=== PATIENT | female | born 2000 | race Two or more races ===

== ENCOUNTER 2024-07-10 08:11 | Inpatient (IN) | payer MEDICAID, OTHER ==
[~2024-07-10] VITALS: Ht 167.6 cm; Wt 98.3 kg
[2024-07-10 08:39] LABS: Urine Bacteria None Seen /hpf (None Seen)
[2024-07-10 08:49] LABS: Urine Blood 1+ /uL (Negative); Urine Clarity Clear (Clear); Urine Color Yellow (Yellow); Urine Mucus FEW (None Seen); Urine Protein, UAD 1+ (Negative); Urine Squamous Epithelial Cell FEW /hpf (<5); Urine Urobilinogen Normal (Negative); Urine WBC 2 /HPF (0-5); Urine pH 5.5 (5.0-9.0)
--- NOTE | 2024-07-10 09:32 | ED.PDOC ---
History of Present Illness HPI Comments 24F presents to the ER w/ no prior Hx associated to the c/c of urinary pain. Pt reports on having LLQ/Left sided flank pain for 2 days associated w/ pain during urination and N/V/D. Pt notes the /D being w/ 30 min intervals. Denies chills, fever, SOB, CP or no other associated symptom's, modifiers, recent injuries or sick contact at this time. Chief Complaint: Urinary Time Seen by MD: 09:00 Primary Care Provider: SERGEI Reviewed Notes: Nurses Notes, Medications, Allergies Allergies: Coded Allergies: NO KNOWN ALLERGIES (Unverified , 07/10/24) Information Source: Patient Mode of Arrival: Ambulatory Severity: Moderate Timing: Days Duration: Since onset, Days Prehospital treatment: None Past Medical History PAST MEDICAL HISTORY: Denies Surgical History: Denies all surgeries GLOVE FORMER History: No Pertinent GLOVE FORMER History Family History Family History: Reviewed,noncontributory to illness, Unknown Social History Smoker: Non-Smoker Alcohol: Denies ETOH Use Drugs: Denies Drug Use Lives In: Home Constitutional: denies: chills, diaphoresis, fatigue, fever, malaise, sweats, weakness, others EENTM: denies: blurred vision, double vision, ear bleeding, ear discharge, ear drainage, ear pain, ear ringing, eye pain, eye redness, hearing loss, mouth pain, mouth swelling, nasal discharge, nose bleeding, nose congestion, nose pain, photophobia, tearing, throat pain, throat swelling, voice changes, others Respiratory: denies: cough, hemoptysis, orthopnea, SOB at rest, shortness of breath, SOB with excertion, stridor, wheezing, others Cardiovascular: denies: chest pain, dizzy spells, diaphoresis, Dyspnea on exertion, edema, irregular heart beat, left arm pain, lightheadedness, palpit ations, PND, syncope, others Gastrointestinal: reports: abdominal pain, diarrhea, nausea, vomiting; denies: abdomen distended, blood streaked bowels, constipated, dysphagia, difficulty swallowing, hematemesis, melena, poor appetite, poor fluid intake, rectal bleeding, rectal pain, others Genitourinary: reports: flank pain, pain; denies: abnormal vagina bleeding, burning, dyspareunia, dysuria, frequency, hematuria, incontinence, , vagina discharge, urgency, others Neurological: denies: dizziness, fainting, headache, left sided numbness, left sided weakness, numbness, paresthesia, pre-existing deficit, right sided numbness, right sided weakness, seizure, speech problems, tingling, tremors, weakness, others Musculoskeletal: denies: back pain, gout, joint pain, joint swelling, muscle pain, muscle stiffness, neck pain, others Integumetry: denies: bruises, change in color, change in hair/nails, dryness, laceration, lesions, lumps, rash, wounds, others Allergic/Immunocompromised: denies: Difficulty Healing, Frequent Infections, Hives, Itching, others Hematologic/Lymphatic: denies: anemia, blood clots, easy bleeding, easy bruising, swollen glands, others Endocrine: denies: excessive hunger, excessive sweating, excessive thirst, excessive urination, flushing, intolerance to cold, intolerance to heat, unexplained weight gain, unexplained weight loss, others Psychiatric: denies: anxiety, bipolar disorder, depression, hopeless, panic disorder, schizophrenia, sleepless, suicidal, others All Other Systems: Reviewed and Negative Physical Exam General Appearance: Moderate Distress, Normal HEENT: Normal ENT Inspection, Pharynx Normal, TMs Normal Neck: Full Range of Motion, Non-Tender, Normal, Normal Inspection Respiratory: Chest Non-Tender, Lungs Clear, No Accessory Muscle Use, No Respiratory Distress, Normal Breath Sounds Cardiovascular: No Edema, No JVD, No Murmur, No Gallop, Normal Peripheral Pulses, Regular Rate/Rhythm Breast Exam: Deferred Gastrointestinal: No Organomegaly, Non Tender, No Pulsatile Mass, Normal Bowel Sounds, Soft Genitalia: Deferred Pelvic: Deferred Rectal: Deferred Extremities: No calf tenderness, Normal capillary refill, Normal inspection, Normal range of motion, Non-tender, No pedal edema Musculoskeletal : Apperance: Normal Neurologic: Alert, dielectric tester II-XII nml as Tested, No Motor Deficits, Normal Affect, Normal Mood, No Sensory Deficits Cerebellar Function: Normal Reflexes: Normal Skin: Dry, Normal Color, Warm Peripheral Pulses: 3+ Radial (R), 3+ Radial (L) Lymphatic: No Adenopathy Was a procedure done? Was a procedure done?: No Differential Dx Considerations may include: Anemia Urinary tract infection X-Ray, Labs, Meds, VS Vital Signs Date Time Temp Pulse Resp B/P (MAP) Pulse Ox O2 Delivery O2 Flow Rate FiO2 07/10/24 08:27 97.6 81 16 128/78 (95) 97 Lab Test 07/10/24 09:44 07/10/24 08:35 Range/Units White Blood Count 14.8 H 4.4-10.8 10^3/uL Red Blood Count 5.72 H 4.0-5.20 10^6/uL Hemoglobin 11.7 L 12.2-16.2 g/dL Hematocrit 34.1 L 36.0-46.0 % Mean Corpuscular Volume 59.6 L 80.0-100.0 fL Mean Corpuscular Hemoglobin 20.4 L 28.0-32.0 pg Mean Corpuscular Hemoglobin Concent 34.2 32.0-36.0 g/dL Red Cell Distribution Width 21.5 H 11.8-14.3 % Platelet Count 371 140-450 10^3/uL Mean Platelet Volume 8.6 6.9-10.8 fL Neutrophils (%) (Auto) 81.5 H 37.0-80.0 % Lymphocytes (%) (Auto) 12.4 10.0-50.0 % Monocytes (%) (Auto) 5.8 0.0-12.0 % Eosinophils (%) (Auto) 0.1 0.0-7.0 % Basophils (%) (Auto) 0.2 0.0-2.0 % Neutrophils # (Auto) 12.0 H 1.6-8.6 10 ^3/uL Lymphocytes # (Auto) 1.8 0.4-5.4 10 ^3/uL Monocytes # (Auto) 0.9 0-1.3 10 ^3/uL Eosinophils # (Auto) 0 0-0.8 10 ^3/uL Basophils # (Auto) 0 0-0.2 10 ^3/uL Nucleated Red Blood Cells 0.2 % Platelet Estimate Adequate Hypochromasia (manual) Moderate Microcytosis Moderate Target Cells Moderate Stomatocytes Few Urine Color Yellow Yellow Urine Clarity Clear Clear Urine pH 5.5 5.0-9.0 Urine Specific [place] 1.050 H 1.001-1.035 Urine Protein 1+ H Negative Urine Ketones 1+ H Negative Urine Blood 1+ H Negative /uL Urine Nitrite Negative Negative Urine Bilirubin Negative Negative Urine Urobilinogen Normal Negative mg/dL Urine Leukocyte Esterase Negative Negative /uL Urine RBC 1 0 - 4 /hpf Urine Microscopic WBC 2 0-5 /HPF Urine Squamous Epithelial Cells Few <5 /hpf Urine Bacteria None seen None Seen /hpf Urine Mucus Few None Seen Urine Glucose Normal Normal mg/dL Patient alert. Complaining of suprapubic discomfort. Abdomen is soft nontender. Vitals stable. Ketones in urine. No sign of distress. No sepsis. Was told to drink plenty of fluids. No sign of any abdominal pathology. Physical examination pristine. Continues to have pain. CT scan of the abdomen. WBC within normal limits. Ketones in urine. Possible colitis. Possible sepsis from urine. Was given Rocephin. Explained to the patient. Time of 1ST Reevaluation: 09:30 Reevaluation 1ST: Unchanged Patient Education/Counseling: Diagnosis, Treatment, Prognosis Family Education/Counseling: No Family Present Departure 1 Departure Time of Disposition: 11:16 Impression: Primary Impression: Sepsis, unspecified organism Qualified Codes: A41.9 - Sepsis, unspecified organism Additional Impressions: Urinary tract infection Qualified Codes: N30.01 - Acute cystitis with hematuria Dehydration Disposition: ADMITTED INPATIENT Admit to: Med Surg Condition: Guarded Critical Care Note Critical Care Time?: Yes (45 min-critical care time only) Critical care comment: Possible sepsis dehydration fluids Rocephin Stability Stability form required: No Heart Score Heart Score: Heart Score Response (Comments) Value History N/A 0 EKG N/A 0 Age N/A 0 Risk Factors N/A 0 Troponin N/A 0 Total 0 I personally scribed for AURE OLIVERA MD ([email or web address]) on 07/10/24 at 09:32. Electronically submitted by Delta Villalta ([email or web address]). AURE OLIVERA MD Jul 10, 2024 09:32
[2024-07-10 09:58] LABS: Eosinophils # (auto) 0 10 ^3/uL (0-0.8); Eosinophils % (auto) 0.1 % (0.0-7.0)
[2024-07-10 10:00] LABS: Basophils # (auto) 0 10 ^3/uL (0-0.2); Basophils % (auto) 0.2 % (0.0-2.0); Hematocrit 34.1 % (36.0-46.0); Hemoglobin 11.7 g/dL (12.2-16.2); Lymphocytes # (auto) 1.8 10 ^3/uL (0.4-5.4); Lymphocytes % (auto) 12.4 % (10.0-50.0); Mean Corpuscular Hemoglobin 20.4 pg (28.0-32.0); Mean Corpuscular Hgb Conc. 34.2 g/dL (32.0-36.0); Mean Corpuscular Volume 59.6 fL (80.0-100.0); Monocytes # (auto) 0.9 10 ^3/uL (0-1.3); Monocytes % (auto) 5.8 % (0.0-12.0); Neutrophils % (auto) 81.5 % (37.0-80.0); Nucleated Red Blood Cells % 0.2 %; Platelet Count (auto) 371 10^3/uL (140-450); Red Blood Cells 5.72 10^6/uL (4.0-5.20); Red Cell Distribution Width 21.5 % (11.8-14.3); White Blood Cell 14.8 10^3/uL (4.4-10.8)
[2024-07-10 10:43] LABS: Hypochromia Moderate; Platelet Estimate Adequate; Stomatocytes Few; Target Cell MODERATE
[2024-07-10] MEDS: SODIUM CHLORIDE 0.9% 1,000 ML IV ONE (11:40)
[2024-07-10] MEDS: cefTRIAXone 1GM/50ML D5W 50 ML IV ONE (11:40)
--- NOTE | 2024-07-10 11:44 | DVH ---
CT ABDOMEN AND PELVIS WITHOUT CONTRAST CLINICAL HISTORY: colitis TECHNIQUE: Multiple contiguous axial images of the abdomen and pelvis without intravenous contrast. T he images were reformatted degenerate coronal and sagittal reconstructions. All CT scans at this medical facility are performed using dose modulation techniques as appropriate t o a performed exam including the following:Automated exposure control was utilized; adjustment of the MA and/or KV according to patient size; and use of iterative reconstruction technique. Radiation Dose Information: CT Dose: CTDI volume is 15.21 mGy. Dose-length product is 832.43 mGy*cm Comparison: None FINDINGS: Evaluation of the abdomen and pelvis is limited without intravenous contrast. There is a 3 mm calculus at the left ureterovesical junction. There is mild left hydroureteronephros is. There is mild fat stranding surrounding the left kidney. There are additional bilateral sub 5 mm renal calculi. There is no right renal hydronephrosis. There is no evidence of right ureteral calculu s or hydroureter. The liver, gallbladder, pancreas, adrenal glands, and spleen appear within normal limits. There is no gross evidence of abdominal lymphadenopathy. There is no free fluid or free air. The stomach grossly appears unremarkable. The small and large bowel loops demonstrate normal caliber . The appendix is not readily seen in the right lower quadrant abdomen. There are no secondary sign s of acute appendicitis. The abdominal aorta and IVC appear within normal limits. Bladder is poorly filled limiting evaluation. Pelvic organ appears within normal limits. There is no gross evidence of a pelvic mass. There is no free fluid collection. Lung bases are clear. There is no acute osseous abnormality. IMPRESSION: 1. 3 mm calculus at the left ureterovesical junction. There is mild left hydroureteronephrosis. Ther e is mild fat stranding surrounding the left kidney. 2. There are additional bilateral sub 5 mm renal calculi. There is no right renal hydronephrosis. HS:Y
[2024-07-10] MEDS: metroNIDAZOLE 500MG/100ML 100 ML IV ONE (12:22)
[2024-07-10 13:47] LABS: Alanine Aminotransferase 21 U/L (7-40); Alkaline Phosphatase 73 U/L (46-116); Anion Gap 10 (5-15); Aspartate Aminotransferase 23 U/L (13-40); BUN/Creatinine Ratio 11.1 (10.0-20.0); Bilirubin, Total 0.5 mg/dL (0.2-1.0); Blood Urea Nitrogen 13 mg/dL (9-23); Calcium 9.9 mg/dL (8.7-10.4); Carbon Dioxide 23 mmol/L (20-31); Chloride 104 mmol/L (98-107); Potassium 4.3 mmol/L (3.5-5.1); Sodium 137 mmol/L (136-145); Total Protein 8.1 g/dL (5.7-8.2)
[2024-07-10 13:48] LABS: Albumin 4.9 g/dL (3.2-4.8); Glucose 107 mg/dL (74-106)
[2024-07-10] MEDS ORDERED: SODIUM CHLORIDE 0.9% 1,000 ML IV SCH (14:30)
[2024-07-10] MEDS ORDERED: ACETAMINOPHEN 325 MG TAB PO PRN (14:30)
[2024-07-10] MEDS ORDERED: DOCUSATE SOD 100 MG CAP PO PRN (14:30)
[2024-07-10] MEDS ORDERED: TAMSULOSIN HYDROCHLORIDE 0.4 MG CAP PO ONE (14:30)
[2024-07-10] MEDS ORDERED: SODIUM CHLORIDE 0.9% 1,000 ML IV ONE (14:30)
[2024-07-10] MEDS ORDERED: KETOROLAC TROMETH 30 MG/ML 1ML VIAL IV PRN (14:30)
[2024-07-10] MEDS ORDERED: HYDROcodone-ACET 5/325MG TAB PO PRN (14:30)
[2024-07-10] MEDS ORDERED: ONDANSETRON HCL 4 MG/2 ML VIAL IV PRN (14:30)
--- NOTE | 2024-07-10 14:31 | DVHHP2 ---
History of Present Illness Reason for Visit: Abdominal pain History of Present Illness Liz De Leon is a 24-year-old female with no significant past medical history who came in today due to severe abdominal pain. Patient states her abdominal pain began on Monday night. She has associated nausea, vomiting, dysuria, and frequency. On Monday she was feeling a little better, but during the night the pain returned. Her pain continued to worsen, along with vomiting every 30 minutes, prompting her to come to the ER. Past Surgical History: Appendectomy Family History: None Smoke: No ALCOHOL: occassional Drugs: None Lives: with Family Domestic Violence: Neg Review of Systems Constitutional: No: Fever, Chills, Sweats, Weakness, Malaise, Other Eyes: No: Pain, Vision change, Conjunctivae inflammation, Eyelid inflammation, Other, Redness ENT: No: Ear pain, Ear discharge, Nose pain, Nose discharge, Nose congestion, Mouth pain, Mouth swelling, Throat pain, Throat swelling, Other Respiratory: No: Cough, Dry, Shortness of breath, SOB with excertion, Wheezing, Hemoptysis, Pleuritic Pain, Sputum, Wheezing, Other Cardiovascular: No: Chest Pain, Palpitations, Orthopnea, Paroxysmal Noc. Dyspnea, Edema, Lt Headedness, Other Gastrointestinal: Nausea, Vomiting, Abdominal Pain; No: Diarrhea, Constipation, Melena, Hematochezia, Other Genitourinary: No Dysuria, No Frequency, No Incontinence, No Hematuria, No Retention, No Other Musculoskeletal: No: other, neck pain, shoulder pain, arm pain, back pain, hand pain, leg pain, foot pain Skin: No: Rash, Lesions, Jaundice, Bruising, Other Neurological: No: Weakness, Numbness, Incoordination, Change in speech, Confusion, Seizures, Other Allergies: Coded Allergies: NO KNOWN ALLERGIES (Unverified , 07/10/24) Exam Vital Signs Vital Signs Date Time Temp Pulse Resp B/P (MAP) Pulse Ox O2 Delivery O2 Flow Rate FiO2 07/10/24 11:15 97.0 78 15 118/74 (89) 98 97.0 General Appearance: Alert, Oriented X3, Cooperative, moderate distress HEENT: Atraumatic, PERRLA Respiratory: Clear to auscultation, Normal air movement Cardiovascular: Regular rate, Normal S1, Normal S2 Abdominal: Normal bowel sounds, Soft, No hepatospenomegaly, Other (C/O left abdominal pain, nausea, and vomiting) Extremities: No clubbing, No cyanosis, No edema, Normal pulses Skin: No rashes, No breakdown, No significant lesion Neuro: Normal gait, Normal speech, Strength at 5/5 X4 ext Psych/Mental Status: Mental status NL, Mood NL Labs/Xrays Labs Test 07/10/24 09:44 07/10/24 08:35 Range/Units White Blood Count 14.8 H 4.4-10.8 10^3/uL Red Blood Count 5.72 H 4.0-5.20 10^6/uL Hemoglobin 11.7 L 12.2-16.2 g/dL Hematocrit 34.1 L 36.0-46.0 % Mean Corpuscular Volume 59.6 L 80.0-100.0 fL Mean Corpuscular Hemoglobin 20.4 L 28.0-32.0 pg Mean Corpuscular Hemoglobin Concent 34.2 32.0-36.0 g/dL Red Cell Distribution Width 21.5 H 11.8-14.3 % Platelet Count 371 140-450 10^3/uL Mean Platelet Volume 8.6 6.9-10.8 fL Neutrophils (%) (Auto) 81.5 H 37.0-80.0 % Lymphocytes (%) (Auto) 12.4 10.0-50.0 % Monocytes (%) (Auto) 5.8 0.0-12.0 % Eosinophils (%) (Auto) 0.1 0.0-7.0 % Basophils (%) (Auto) 0.2 0.0-2.0 % Neutrophils # (Auto) 12.0 H 1.6-8.6 10 ^3/uL Lymphocytes # (Auto) 1.8 0.4-5.4 10 ^3/uL Monocytes # (Auto) 0.9 0-1.3 10 ^3/uL Eosinophils # (Auto) 0 0-0.8 10 ^3/uL Basophils # (Auto) 0 0-0.2 10 ^3/uL Nucleated Red Blood Cells 0.2 % Platelet Estimate Adequate Hypochromasia (manual) Moderate Microcytosis Moderate Target Cells Moderate Stomatocytes Few Sodium Level 137 136-145 mmol/L Potassium Level 4.3 3.5-5.1 mmol/L Chloride Level 104 98-107 mmol/L Carbon Dioxide Level 23 20-31 mmol/L Anion Gap 10 5-15 Blood Urea Nitrogen 13 9-23 mg/dL Creatinine 1.17 H 0.550-1.02 mg/dL Glomerular Filtration Rate Calc 67 >90 mL/min BUN/Creatinine Ratio 11.1 10.0-20.0 Serum Glucose 107 H 74-106 mg/dL Calcium Level 9.9 8.7-10.4 mg/dL Total Bilirubin 0.5 0.2-1.0 mg/dL Aspartate Amino Transferase (AST) 23 13-40 U/L Alanine Aminotransferase (ALT) 21 7-40 U/L Alkaline Phosphatase 73 46-116 U/L Total Protein 8.1 5.7-8.2 g/dL Albumin 4.9 H 3.2-4.8 g/dL Urine Color Yellow Yellow Urine Clarity Clear Clear Urine pH 5.5 5.0-9.0 Urine Specific [place] 1.050 H 1.001-1.035 Urine Protein 1+ H Negative Urine Ketones 1+ H Negative Urine Blood 1+ H Negative /uL Urine Nitrite Negative Negative Urine Bilirubin Negative Negative Urine Urobilinogen Normal Negative mg/dL Urine Leukocyte Esterase Negative Negative /uL Urine RBC 1 0 - 4 /hpf Urine Microscopic WBC 2 0-5 /HPF Urine Squamous Epithelial Cells Few <5 /hpf Urine Bacteria None seen None Seen /hpf Urine Mucus Few None Seen Urine Glucose Normal Normal mg/dL CT ABDOMEN AND PELVIS WITHOUT CONTRAST FINDINGS: Evaluation of the abdomen and pelvis is limited without intravenous contrast. There is a 3 mm calculus at the left ureterovesical junction. There is mild le ft hydroureteronephrosis. There is mild fat stranding surrounding the left kidney. There are additional bilateral sub 5 mm renal calculi. There is no right renal hydronephrosis. There is no evidence of right ureteral calculus or hydroureter. The liver, gallbladder, pancreas, adrenal glands, and spleen appear within normal limits. There is no gross evidence of abdominal lymphadenopathy. There is no free fluid or free air. The stomach grossly appears unremarkable. The small and large bowel loops demonstrate normal caliber. The appendix is not readily seen in the right lower quadrant abdomen. There are no secondary signs of acute appendicitis. The abdominal aorta and IVC appear within normal limits. Bladder is poorly filled limiting evaluation. Pelvic organ appears within normal limits. There is no gross evidence of a pelvic mass. There is no free fluid collection. Lung bases are clear. There is no acute osseous abnormality. IMPRESSION: 1. 3 mm calculus at the left ureterovesical junction. There is mild left hydroureteronephrosis. There is mild fat stranding surrounding the left kidney. 2. There are additional bilateral sub 5 mm renal calculi. There is no right renal hydronephrosis. Assessment/Plan Assessment/Plan Assessment: Hydroureteronephrosis, Renal calculi, Acute kidney injury, Plan: Admit to Med-Surg, Urology consult, IV hydration, Flomax, Strain all urine, Plan discussed with: Patient My Orders Orders - COOPER MARIN Procedure Category Date Status Time Admit ADMIT 07/10/24 Verified 14:20 Code Status CODE 07/10/24 Verified 14:20 0.9% Ns 1000 Ml PHA 07/10/24 Verified 14:30 Hydrocodone-Acet PHA 07/10/24 Verified 5/325mg Tab ([place] 14:30 Ondansetron Hcl PHA 07/10/24 Verified (Zofran) 14:30 Docusate Sodium PHA 07/10/24 Verified Capsule (Colace 14:30 Complete Blood Count LAB 07/11/24 Verified 04:00 Comprehensive LAB 07/11/24 Verified Metabolic Panel 04:00 Condition: Serious MADINA 07/10/24 Verified 14:20 Acetaminophen Tablet PHA 07/10/24 Verified (Tylenol Tablet) 14:30 Tamsulosin PHA 07/10/24 Verified Hydrochloride (Flomax) 14:30 Tamsulosin PHA 07/11/24 Verified Hydrochloride (Flomax) 18:00 NS PHA 07/10/24 Verified 14:30 Ketorolac Injection PHA 07/10/24 Verified (Toradol Injection) 14:30 * Urology Consult CONS 07/10/24 Verified 14:20 Date of Service: Jul 10, 2024 Billing Provider: COOPER MARIN Common Visit Codes: [id number] INP/OBS CARE (MOD) COOPER MARIN Jul 10, 2024 14:31
[2024-07-10 16:45] VITALS: BP 130/82; PULSE 84; RESP 20; TEMP 99.2; O2SAT 91
[2024-07-11] MEDS ORDERED: TAMSULOSIN HYDROCHLORIDE 0.4 MG CAP PO SCH (18:00)
== END 2024-07-10 19:09 | disposition left against medical advice (07) | DRG 720 ==
LOC: ER 08:11 → OVERFLOW 14:20
PROVIDERS: ADMIT Nurse Practitioner Family; ATTEND Nurse Practitioner Family
DX: A41.9 Sepsis, unspecified organism (principal); N17.9 Acute kidney failure, unspecified; N13.30 Unspecified hydronephrosis; N20.0 Calculus of kidney; E86.0 Dehydration; Z53.29 Procedure and treatment not carried out because of patient's decision for other reasons
CPT/HCPCS: 36415; 74176; 80053; 81001; 85025; 96361; 96365; 99291; G0378; J3490